=== PATIENT | female | born 1995 | race Two or more races ===

== ENCOUNTER 2019-10-28 14:40 | Outpatient (CLI) | payer OTHER | END 2019-10-28 23:59 | disposition home or self-care (01) | LOC: RAD 14:40 | PROVIDERS: ATTEND Obstetrics & Gynecology | DX: O36.8310 Maternal care for abnormalities of the fetal heart rate or rhythm, first trimester, not applicable or unspecified (principal); Z3A.01 Less than 8 weeks gestation of pregnancy | CPT/HCPCS: 76801 ==

== ENCOUNTER 2019-11-05 15:14 | Observation (INO) | payer OTHER ==
[~2019-11-05] VITALS: Ht 152.4 cm; Wt 70.0 kg
[2019-11-05] VITALS (8 sets, daily range): BP systolic 76–108; BP diastolic 41–69
[2019-11-05] MEDS ORDERED: CHLORHEXIDINE 15 ML UDC MM STA (15:46)
[2019-11-05] MEDS ORDERED: LACTATED RINGERS 1,000 ML IV SCH (15:46)
[2019-11-05] MEDS ORDERED: CHLORHEXIDINE 15 ML UDC ONE (15:53)
[2019-11-05] MEDS ORDERED: NO MEDS (16:17)
[2019-11-05 16:18] LABS: HCG UR SG 1.034 (1.003-1.030)
[2019-11-05] MEDS ORDERED: MIDAZOLAM 1 MG/ML, 2ML ONE (17:12)
[2019-11-05] MEDS ORDERED: FENTANYL PF 100 MCG/2ML ONE (17:12)
[2019-11-05] MEDS ORDERED: SILVER NITRATE STICK TP ONE (17:17)
[2019-11-05] MEDS ORDERED: OXYTOCIN 10 UNITS/ML, 1ML ONE (17:17)
[2019-11-05] MEDS ORDERED: MISOPROSTOL 200 MCG TABLET ONE (17:17)
[2019-11-05] MEDS ORDERED: METHYLERGONOVINE 0.2 MG/ML IM ONE (17:17)
[2019-11-05] MEDS ORDERED: DEXAMETHASONE 4 MG/ML, 1ML ONE (17:32)
[2019-11-05] MEDS ORDERED: PROPOFOL 10 MG/ML, 20ML ONE (17:32)
[2019-11-05] MEDS ORDERED: ONDANSETRON 2MG/ML, 2ML ONE (17:32)
[2019-11-05] MEDS ORDERED: HYDROcodone/APAP 7.5-325MG/15ML UDC PO PRN (18:00)
[2019-11-05] MEDS ORDERED: KETOROLAC 30 MG/1 ML IVPush PRN (18:00)
[2019-11-05] MEDS ORDERED: PROMETHAZINE 25 MG/ML, 1ML IVPush PRN (18:00)
[2019-11-05] MEDS ORDERED: morphine SULFATE 10 MG/ML, 1ML IVPush PRN (18:00)
[2019-11-05] MEDS ORDERED: MEPERIDINE/PF 25MG/0.5ML IVPush PRN (18:00)
[2019-11-05] MEDS ORDERED: FENTANYL PF 100 MCG/2ML IV PRN (18:00)
[2019-11-05] MEDS ORDERED: IBUP-1223 PO (20:18)
[2019-11-05] MEDS ORDERED: OXYcodone/APAP 5/325MG TABLET PO PRN (22:30)
[2019-11-05] MEDS ORDERED: LACTATED RINGERS 1,000 ML IVBOLUS ONE (22:30)
[2019-11-05 22:43] LABS: BASOPHILS % (AUTO) 0 % (0-1); EOSINOPHILS % (AUTO) 0 % (1-7); LYMPHOCYTES # (AUTO) 0.82 x10^3/uL (1-3.4); LYMPHOCYTES % (AUTO) 7 % (22-44); MD NO; MEAN CORPUSCULAR HGB CONC 32.4 g/dL (32.4-35.8); MEAN CORPUSCULAR VOLUME 80.3 fL (80-100); MEAN PLATELET VOLUME 7.9 fL (7.4-10.4); MONOCYTES # (AUTO) 0.02 x10^3/uL (0.2-0.8); MONOCYTES % (AUTO) 0 % (2-9); NEUTROPHILS # (AUTO) 10.59 x10^3/uL (1.8-6.8); NEUTROPHILS % (AUTO) 93 % (42-75); PLATELET COUNT 283 x10^3/uL (130-400); RED BLOOD COUNT 4.13 x10^6/uL (3.82-5.3)
[2019-11-05 22:50] LABS: INTERNATIONAL NORMALIZED RATIO 0.98 (0.93-1.1); PROTHROMBIN TIME 10.4 Seconds (9.6-11.5)
[2019-11-06 00:40] VITALS: BP 98/50
[2019-11-06 01:24] VITALS: BP 102/68
[2019-11-06 04:11] VITALS: BP 89/54
[2019-11-06 05:24] LABS: BASOPHILS # (AUTO) 0.01 x10^3/uL (0-0.1); BASOPHILS % (AUTO) 0 % (0-1); EOSINOPHILS % (AUTO) 0 % (1-7); LYMPHOCYTES # (AUTO) 0.83 x10^3/uL (1-3.4); LYMPHOCYTES % (AUTO) 8 % (22-44); MD NO; MEAN CORPUSCULAR HEMOGLOBIN 26.1 pg (27.0-34.8); MEAN CORPUSCULAR HGB CONC 32.4 g/dL (32.4-35.8); MEAN CORPUSCULAR VOLUME 80.5 fL (80-100); MEAN PLATELET VOLUME 8.1 fL (7.4-10.4); MONOCYTES % (AUTO) 1 % (2-9); NEUTROPHILS # (AUTO) 8.88 x10^3/uL (1.8-6.8); NEUTROPHILS % (AUTO) 91 % (42-75); PLATELET COUNT 248 x10^3/uL (130-400); RED BLOOD COUNT 3.35 x10^6/uL (3.82-5.3); RED CELL DISTRIBUTION WIDTH 13.9 % (9.6-15.2)
[2019-11-06] MEDS ORDERED: IRON1TAB60 PO (05:31)
[2019-11-06] MEDS ORDERED: iron PO (05:33)
[2019-11-06] MEDS ORDERED: DOCU-131 PO (05:34)
[2019-11-06 08:00] VITALS: BP 93/54
== END 2019-11-06 09:01 | disposition home or self-care (01) ==
LOC: OR 15:14 → 4NE 19:45 → OR 22:20 → 4NE 22:36
PROVIDERS: ADMIT Obstetrics & Gynecology; ATTEND Obstetrics & Gynecology
DX: Z03.818 Encounter for observation for suspected exposure to other biological agents ruled out (principal); O02.1 Missed abortion; Z3A.01 Less than 8 weeks gestation of pregnancy
CPT/HCPCS: 36415; 59820; 76856; 81025; 85025; 85610; 85730; 86901; 88305; G0378; J1100; J2210; J2250; J2405; J2704; J3010; J7120; U0001; J2590